=== PATIENT | female | born 1955 | race Caucasian/White ===

== ENCOUNTER 2017-03-30 21:57 | Emergency (ER) | payer OTHER ==
[~2017-03-30] VITALS: Ht 167.6 cm; Wt 60.0 kg
[~2017-03-30 21:57] MED LIST: DICY1TAB26 PO; ESTROGEN PATCH TOP; ZOFR4TAB3 SL
[2017-03-30 22:01] VITALS: BP 158/79; PULSE 93; RESP 16; TEMP 98.3; O2SAT 100
[2017-03-30] MEDS ORDERED: ACETAMINOPHEN 325 MG TAB PO ONE (22:15)
--- NOTE | 2017-03-30 22:29 | PD ---
HPI Chief Complaint: Fall Time Seen by Provider: 22:06 Travel History International Travel<30 days: No Contact w/Intl Traveler<30days: No Traveled to known affect area: No History of Present Illness HPI 61yo F with no PMH presents to the ED with c/o headache s/p fall today. Pt was dancing and the daniele she was dancing with let go of her and she fell and hit her head. Pt with small scalp laceration. Denies any LOC, chest pain, sob, n/v, abdominal pain, focal weakness or numbness. PFSH Past Medical History Diabetes: No Diminished Hearing: No Inguinal Hernia: Yes (RIGHT GROIN REPAIR) Immunizations Current: Yes ?: Not Menopausal: Yes : 3 Para: 3 Past Surgical History Abdominal Surgery: Yes (HERNIA REPAIR TO RIGHT GROIN) Cholecystectomy: Yes Genitourinary Surgery: Yes (BLADDER SUSPENSION) Hysterectomy: Yes (TOTAL AND OVARIES REMOVED) Tonsillectomy: Yes Other Surgery: Yes (BLADDER SUSPENSION) Social History Alcohol Use: Yes (WINE OCCASIONALLY) Tobacco Use: No Substance Use: No Allergies-Medications (Allergen,Severity, Reaction): Coded Allergies: No Known Allergies (Verified Adverse Reaction, Unknown, 03/30/17) Reported Meds & Prescriptions Reported Meds & Active Scripts Active Bentyl (Dicyclomine HCl) 20 Mg Tab 20 Mg PO Q8 Zofran ODT (Ondansetron HCl) 4 Mg Tab 4 Mg SL Q8 PRN FOR NAUSEA/VOMITING Reported [Estrogen Patch] 1 Patch TOP WEEKLY Review of Systems Except as stated in HPI: all other systems reviewed are Neg Physical Exam Narrative GENERAL: 61yo F in mild distress. SKIN: Focused skin assessment warm/dry. HEAD: +0.5cm scalp laceration in left parietal scalp. EYES: Pupils equal and round. No scleral icterus. No injection or drainage. ENT: No nasal bleeding or discharge. Mucous membranes pink and moist. NECK: Trachea midline. No JVD. CARDIOVASCULAR: Regular rate and rhythm. No murmur appreciated. RESPIRATORY: No accessory muscle use. Clear to auscultation. Breath sounds equal bilaterally. GASTROINTESTINAL: Abdomen soft, non-tender, nondistended. MUSCULOSKELETAL: No obvious deformities. No clubbing. No cyanosis. No edema. NEUROLOGICAL: Awake and alert. No obvious cranial nerve deficits. Motor grossly within normal limits. Normal speech. PSYCHIATRIC: Appropriate mood and affect; insight and judgment normal. Data Data Last Documented VS Vital Signs Date Time Temp Pulse Resp B/P (MAP) Pulse Ox O2 Delivery O2 Flow Rate FiO2 03/30/17 22:07 16 100 Room Air 03/30/17 22:01 98.3 93 158/79 (105) Orders Orders Ct Brain W/O Iv Contrast(Rout) (03/30/17 ) Acetaminophen (Tylenol) (03/30/17 22:15) Lidocaine 1% Inj (50 Ml) (Xylocaine 1% I (03/30/17 22:30) Ketorolac Inj (Toradol Inj) (03/31/17 00:45) MDM Medical Decision Making Medical Screen Exam Complete: Yes Emergency Medical Condition: Yes Differential Diagnosis Scalp laceration vs. ICH Narrative Course 61yo F with left scalp laceration s/p fall while dancing. Pt has been drinking a little but not intoxicated. EVAC said she had some repetitive questioning but here she is answering questions normally. CT brain negative. Laceration repaired. Headache improved with acetaminophen and toradol. Tetanus updated. Return precautions given. Procedures Procedure Narrative LACERATION LOCATION: Left scalp LENGTH: 0.5cm NUMBER OF STITCHES/DAVE: 1 REPAIR:The wound was copiously irrigated and explored without evidence of foreign body, tendon injury or neurovascular injury. The wound was closed using 1 staple. This was a single layer repair. Patient tolerated the procedure well. Diagnosis Primary Impression: Head injury Qualified Codes: S09.90XA - Unspecified injury of head, initial encounter Patient Instructions: General Instructions Departure Forms: Tests/Procedures Additional Instructions: Please follow up with your primary care physician in 5 days for staple removal. Return to the ED if symptoms worsen. Med/Other Pt SpecificInfo: Prescription(s) given Scripts Acetaminophen (Tylenol) 325 Mg Tab 650 MG PO Q6H Y for PAIN SCALE 1 TO 4, #20 TAB 0 Refills Prov: Nicolasa Hair DO 03/31/17 Disposition: 01 DISCHARGE HOME Condition: Stable Nicolasa Hair DO Mar 30, 2017 22:29
[2017-03-30] MEDS ORDERED: LIDOCAINE HCL 1% 50 ML VIAL INFIL ONE (22:30)
--- NOTE | 2017-03-30 22:50 | RADRPT ---
EXAM DATE/TIME: 03/30/2017 22:41 [place] COMPARISON: No previous studies available for comparison. INDICATIONS : Trauma, fall and hit back of head. RADIATION DOSE: 31.98 CTDIvol (mGy) MEDICAL HISTORY : Hernia. SURGICAL HISTORY : Cholecystectomy. Hysterectomy.Hernia repair. ENCOUNTER: Initial ACUITY: 1 day PAIN SCALE: 6/10 LOCATION: cranial TECHNIQUE: Multiple contiguous axial images were obtained of the head. Using automated exposure control and adj ustment of the mA and/or kV according to patient size, radiation dose was kept as low as reasonably a chievable to obtain optimal diagnostic quality images. DICOM format image data is available electro nically for review and comparison. FINDINGS: CEREBRUM: The ventricles are normal for age. No evidence of midline shift, mass lesion, hemorrhage or acute in farction. No extra-axial fluid collections are seen. POSTERIOR FOSSA: The cerebellum and brainstem are intact. The 4th ventricle is midline. The cerebellopontine angle i s unremarkable. EXTRACRANIAL: The visualized portion of the orbits is intact. SKULL: The calvaria is intact. No evidence of skull fracture. CONCLUSION: Normal examination. Patricio Gold MD on March 30, 2017 at 22:47 Board Certified Radiologist. This report was verified electronically.
[2017-03-31] MEDS ORDERED: KETOROLAC TROMETHAMINE 60 MG/2 ML (IM) VIAL IM ONE (00:45)
[2017-03-31] MEDS ORDERED: TYLE325T PO (00:46)
[2017-03-31 00:58] VITALS: BP 161/79; PULSE 80; RESP 16; O2SAT 97
[2017-03-31] MEDS ORDERED: KETOROLAC TROMETHAMINE 30 MG/ML (IVP) VIAL IV PUSH ONE (01:00)
[2017-03-31] MEDS ORDERED: TETANUS/DIPHTHERIA TOXOID ADULT 0.5 ML VIAL IM ONE (01:00)
== END 2017-03-31 01:05 | disposition home or self-care (01) ==
LOC: NEPE 21:57
DX: S09.90XA Unspecified injury of head, initial encounter (principal); S01.01XA Laceration without foreign body of scalp, initial encounter; W01.198A Fall on same level from slipping, tripping and stumbling with subsequent striking against other object, initial encounter; Y93.41 Activity, dancing; Z23 Encounter for immunization
CPT/HCPCS: 12001; 70450; 90471; 90714; 96374; 99285; J1885

== ENCOUNTER 2018-05-12 12:45 | Observation (INO) ==
[2018-05-12] MEDS ORDERED: Sod Chloride 0.9% Inj 1,000 ML IV.SIG SCH (13:45)
--- NOTE | 2018-05-12 13:50 | ED ---
HPI General Chief complaint: Dizziness Stated complaint: bp elevated/dizzy when walking/vomiting Time Seen by Provider: 05/12/18 13:33 Source: patient Mode of arrival: ambulatory Limitations: no limitations History of Present Illness HPI narrative: 62yo F with no significant PMH presents to the ED with multiple complaints. Since 8am today, she has not been feeling well, feeling clammy, nauseous, vomiting. Said she feels dizzy when she turn her head or get up from lying position. Denies any fever, chest pain, sob, abdominal pain, focal weakness or numbness. Related Data Home Medications Medication Instructions Recorded Confirmed No Known Home Medications 05/12/18 05/12/18 Previous Rx's Medication Instructions Recorded aspirin [Aspir-81] 81 mg PO DAILY #30 tab 05/13/18 meclizine 25 mg PO TID PRN #20 tab 05/13/18 Allergies Allergy/AdvReac Type Severity Reaction Status Date / Time No Known Allergies Allergy Verified 05/12/18 12:51 Review of Systems ROS: all other systems reviewed are negative [facility] Surgical History Surgical History History of bladder surgery (Acute) History of cholecystectomy (Acute) History of hysterectomy (Acute) History of tonsillectomy (Acute) Family History Family History Other No pertinent family history Social History Social History Substance History: No History of Abuse Second Hand Smoke Exposure: No Smoking Status: Former smoker Tobacco Type: Cigarettes How Often Do You Have a Drink Containing Alcohol: 2 to 4 times a month Recent Travel in [facility] within the Last 8 Weeks: No Recent Out of Country Travel within the Last 8 Weeks: No Immunization History Tetanus Immunization: <5 Years Tetanus Immunization Year if Known: 2017 Exam Narrative Exam Narrative: GENERAL: 62yo F in mild distress. SKIN: Focused skin assessment warm/dry. HEAD: Atraumatic. Normocephalic. EYES: Pupils equal and round at 4mm bilaterally. EOMI. ENT: No nasal bleeding or discharge. Mucous membranes pink and moist. NECK: Trachea midline. No JVD. CARDIOVASCULAR: Regular rate and rhythm. No murmur appreciated. RESPIRATORY: No accessory muscle use. Clear to auscultation. Breath sounds equal bilaterally. GASTROINTESTINAL: Abdomen soft, non-tender, nondistended. MUSCULOSKELETAL: No obvious deformities. No clubbing. No cyanosis. No edema. NEUROLOGICAL: Awake and alert. No obvious cranial nerve deficits. Motor grossly within normal limits in all extremities. Sensation intact. Normal speech. PSYCHIATRIC: Appropriate mood and affect; insight and judgment normal. Course Initial Documented Vital Signs Temperature 98 F 05/12/18 12:49 Pulse Rate 86 05/12/18 12:49 Respiratory Rate 14 05/12/18 12:49 Blood Pressure 150/64 H 05/12/18 12:49 Pulse Oximetry 98 05/12/18 12:49 Last Documented Vital Signs Temperature 99.1 F 05/13/18 11:49 Pulse Rate 90 05/13/18 11:49 Respiratory Rate 16 05/13/18 11:49 Blood Pressure 138/68 05/13/18 11:49 Pulse Oximetry 97 05/13/18 11:49 Medical Decision Making MDM Narrative Medical decision making narrative: 62yo F with multiple complaints. Impression is more vertigo. Labs reviewed, no leukocytosis. H/H normal. CMP unremarkable. Lipase normal. UA showed WBC 0-5. Pt given zofran and IVF. Said nausea had resolved but still dizzy. Pt given meclizine and reevaluated at bedside and said it did improve. Said she feels like she is drunk and have unsteady gait when she walks. Said she feels like there's something in the left side of her head but it is not really pain. MRI brain ordered to r/o posterior stroke. Pt reevaluated at bedside and said the left side of her face feels more numb compare to the right side while she was in the ED but she did not tell anyone. No facial droop or changes in her speech. NIH Stroke scale 1. Stat CT brain ordered. CT brain negative. She said she has never felt like this and that this was different from the last time she was here in November. Pt is unsteady while walking. Will admit for observation for TIA, neurology consult and MRIs. Discussed with Dr. Garrett and accepted to his service. Medical Screen Exam Complete: Yes Emergency Medical Condition: Yes Differential Diagnosis Differential Diagnosis: Peripheral vertigo vs. dehydration vs. viral syndrome vs. electrolyte abnormality vs. anxiety Lab Data Result diagrams: 05/13/18 06:07 05/13/18 06:07 Lab Results 05/12/18 05/12/18 05/12/18 Range/Units 14:06 14:06 15:19 CBC w Diff Auto diff final WBC 6.7 (4.0-11.0) th/mm3 RBC 4.35 (4.00-5.30) mil/mm3 Hgb 12.7 (11.6-15.3) gm/dL Hct 39.0 (35.0-46.0) % MCV 89.7 (80.0-100.0) fL MCH 29.3 (27.0-34.0) pg MCHC 32.7 (32.0-36.0) % RDW 12.2 (11.6-17.2) % Plt Count 256 (150-450) th/mm3 MPV 9.3 (7.0-11.0) fL Neut % (Auto) 83.0 H (16.0-70.0) % Lymph % (Auto) 12.8 (9.0-44.0) % [place] % (Auto) 3.6 (0.0-8.0) % Eos % (Auto) 0.3 (0.0-4.0) % Baso % (Auto) 0.3 (0.0-2.0) % Neut # (Auto) 5.6 (1.8-7.7) th/mm3 Lymph # (Auto) 0.9 L (1.0-4.8) th/mm3 [place] # (Auto) 0.2 (0.0-0.9) th/mm3 Eos # (Auto) 0.0 (0.0-0.4) th/mm3 Baso # (Auto) 0.0 (0.0-0.2) th/mm3 WBC Differential . Differential Comment . Sodium 138 (136-145) meq/L Potassium 4.2 (3.5-5.1) meq/L Chloride 105 (98-107) meq/L Carbon Dioxide 24.8 (21.0-32.0) meq/L Anion Gap 8 (5-15) meq/L BUN 13 (7-18) mg/dL Creatinine 0.56 (0.50-1.00) mg/dL Estimated GFR Greater than 89 (>89) mL/min Random Glucose 135 H (74-106) mg/dL Calcium 8.0 L (8.5-10.1) mg/dL Total Bilirubin 0.7 (0.2-1.0) mg/dL AST 19 (15-37) U/L ALT 24 (10-53) U/L Alkaline Phosphatase 69 (45-117) U/L Troponin I Less than 0.02 L (0.02-0.05) ng/mL Total Protein 7.3 (6.4-8.2) g/dL Albumin 3.5 (3.4-5.0) g/dL Lipase 146 (73-393) U/L Urine Color Yellow (Yellw/Straw) Urine Clarity Clear (Clear) Urine pH 7.5 (5.0-8.5) Ur Specific [place] 1.010 (1.002-1.035) Urine Protein Negative (Neg-Trace) mg/dL Urine Glucose (UA) Negative (Negative) mg/dL Urine Ketones Negative (Negative) mg/dL Urine Occult Blood Negative (Negative) Urine Nitrate Negative (Negative) Urine Bilirubin Negative (Negative) Urine Urobilinogen 0.2 (Less than 2) mg/dL Ur Leukocyte Esterase Negative (Negative) Urine WBC 0-5 (0-5) /hpf Ur Squamous Epith Cells 0-5 (0-5) /hpf Urine Bacteria Rare H (None) /hpf Urine Mucus Rare H (Occasional) /lpf Micro UA Comment Culture not ind Ur Microscopic Review Microscopic reviewed Urine Culture Comments Culture not ind 05/13/18 05/13/18 05/13/18 Range/Units 00:52 06:07 06:07 CBC w Diff Auto diff final WBC 5.4 (4.0-11.0) th/mm3 RBC 4.10 (4.00-5.30) mil/mm3 Hgb 11.8 (11.6-15.3) gm/dL Hct 36.3 (35.0-46.0) % MCV 88.4 (80.0-100.0) fL MCH 28.7 (27.0-34.0) pg MCHC 32.5 (32.0-36.0) % RDW 12.1 (11.6-17.2) % Plt Count 230 (150-450) th/mm3 MPV 9.2 (7.0-11.0) fL Neut % (Auto) 46.5 (16.0-70.0) % Lymph % (Auto) 40.4 (9.0-44.0) % [place] % (Auto) 10.2 H (0.0-8.0) % Eos % (Auto) 2.6 (0.0-4.0) % Baso % (Auto) 0.3 (0.0-2.0) % Neut # (Auto) 2.5 (1.8-7.7) th/mm3 Lymph # (Auto) 2.2 (1.0-4.8) th/mm3 [place] # (Auto) 0.6 (0.0-0.9) th/mm3 Eos # (Auto) 0.1 (0.0-0.4) th/mm3 Baso # (Auto) 0.0 (0.0-0.2) th/mm3 WBC Differential . Differential Comment . Sodium 144 (136-145) meq/L Potassium 4.1 (3.5-5.1) meq/L Chloride 111 H (98-107) meq/L Carbon Dioxide 25.9 (21.0-32.0) meq/L Anion Gap 7 (5-15) meq/L BUN 10 (7-18) mg/dL Creatinine 0.56 (0.50-1.00) mg/dL Estimated GFR Greater than 89 (>89) mL/min Random Glucose 101 (74-106) mg/dL Calcium 7.8 L (8.5-10.1) mg/dL Total Bilirubin 1.2 H (0.2-1.0) mg/dL AST 14 L (15-37) U/L ALT 22 (10-53) U/L Alkaline Phosphatase 61 (45-117) U/L Troponin I Less than 0.02 L (0.02-0.05) ng/mL Total Protein 6.4 D (6.4-8.2) g/dL Albumin 3.1 L (3.4-5.0) g/dL Lipase (73-393) U/L Urine Color (Yellw/Straw) Urine Clarity (Clear) Urine pH (5.0-8.5) Ur Specific [place] (1.002-1.035) Urine Protein (Neg-Trace) mg/dL Urine Glucose (UA) (Negative) mg/dL Urine Ketones (Negative) mg/dL Urine Occult Blood (Negative) Urine Nitrate (Negative) Urine Bilirubin (Negative) Urine Urobilinogen (Less than 2) mg/dL Ur Leukocyte Esterase (Negative) Urine WBC (0-5) /hpf Ur Squamous Epith Cells (0-5) /hpf Urine Bacteria (None) /hpf Urine Mucus (Occasional) /lpf Micro UA Comment Ur Microscopic Review Urine Culture Comments Imaging Data Radiologist's impression: Head CT 05/12/18 17:56 CONCLUSION: 1. Negative noncontrast head CT. . Head MRI 05/13/18 17:48 CONCLUSION: 1. Negative MR Brain with and without contrast. Head MRA 05/13/18 18:00 CONCLUSION: 1. Negative MRA Cow ([place]) non contrast. Neck MRA 05/13/18 18:00 CONCLUSION: 1. Negative MRA Carotids. Percent stenosis is calculated using the diameter of the stenotic region over the diameter of the normal distal internal carotid artery ECG Data EKG Prior to Arrival: No Attestation: I personally reviewed and interpreted this ECG as follows: Interpretation: NSR 70bpm. Normal axis. WA interval 166ms. Q wave V2. Similar to prior on 11/2017. QTc 422ms. No significant ST elevation or depression. Discharge Plan Discharge Disposition Patient Disposition: ED Admit(ED Internal Use Only) Discharge Condition Condition: Stable Discharge Order Discharge Orders: Discharge Order (Routine); Ordered 05/13/18 Ordered By: Oscar Doshi ED Use Only Admit Order (Routine); Ordered 05/12/18 Ordered By: Nicolasa Hair Discharge Details Anticipated Discharge Date: 05/13/18 Diagnosis: Dizziness Physicians Team ED Provider: Nicolasa Hair Primary Care Provider: Primary Care Theresa Wilkins Attending Provider: Shena Heredia Status ED Status: Left Department Discharge Information Discharge Date/Time: 05/12/18 21:14
[2018-05-12 14:13] LABS: Baso % (Auto) 0.3 % (0.0-2.0); Eos % (Auto) 0.3 % (0.0-4.0); Hemoglobin 12.7 gm/dL (11.6-15.3); Lymph # (Auto) 0.9 th/mm3 (1.0-4.8); Lymph % (Auto) 12.8 % (9.0-44.0); Mean Corpuscular HGB Conc 32.7 % (32.0-36.0); Mean Corpuscular Hemoglobin 29.3 pg (27.0-34.0); Mean Corpuscular Volume 89.7 fL (80.0-100.0); Mean Platelet Volume 9.3 fL (7.0-11.0); Mono # (Auto) 0.2 th/mm3 (0.0-0.9); Mono % (Auto) 3.6 % (0.0-8.0); Neut # (Auto) 5.6 th/mm3 (1.8-7.7); Platelet Count 256 th/mm3 (150-450); Red Blood Count 4.35 mil/mm3 (4.00-5.30); Red Cell Distribution Width 12.2 % (11.6-17.2); White Blood Count 6.7 th/mm3 (4.0-11.0)
[2018-05-12 14:20] LABS: Chloride 105 meq/L (98-107); Potassium 4.2 meq/L (3.5-5.1); Sodium 138 meq/L (136-145)
[2018-05-12 14:26] LABS: Albumin 3.5 g/dL (3.4-5.0); Anion Gap 8 meq/L (5-15); Carbon Dioxide 24.8 meq/L (21.0-32.0); Glucose,Random 135 mg/dL (74-106)
[2018-05-12 14:27] LABS: Blood Urea Nitrogen 13 mg/dL (7-18); Lipase 146 U/L (73-393)
[2018-05-12 14:29] LABS: Alanine Aminotransferase 24 U/L (10-53); Aspartate Aminotransferase 19 U/L (15-37); Glomerular Filtration Rate Greater Than 89 mL/min (>89)
[2018-05-12 14:30] LABS: Total Protein 7.3 g/dL (6.4-8.2)
[2018-05-12 14:32] LABS: Alkaline Phosphatase 69 U/L (45-117)
[2018-05-12 15:40] LABS: Bilirubin,Urine Negative (Negative); Clarity,Urine Clear (Clear); Color,Urine Yellow (Yellw/Straw); Glucose,Urine (UA) Negative (Negative); Leukocyte Esterase,Urine Negative (Negative); Nitrite,Urine Negative (Negative); PH,Urine 7.5 (5.0-8.5); Urobilinogen,Urine 0.2 mg/dL (Less than 2)
[2018-05-12 15:44] LABS: Bacteria,Urine Rare /hpf; Mucus,Urine Rare /lpf (Occasional); Squamous Epithelial Cell,Urine 0-5 /hpf (0-5); WBC,Urine 0-5 /hpf (0-5)
--- NOTE | 2018-05-12 18:13 | CT ---
EXAM DATE: 05/12/2018 6:08 PM EST AGE/SEX: 62 years / Female INDICATIONS: Dizziness with left facial numbness. CLINICAL DATA: This is the patient's initial encounter. Patient reports that signs and symptoms have been present for 1 day and indicates a pain score of 0/10. MEDICAL/SURGICAL HISTORY: . Mitral valve prolapse. Hysterectomy. Cholecystectomy. Tonsillectomy. Bladder surgery. RADIATION DOSE: 48.58 CTDI (mGy) COMPARISON: [facility] [place], CT BRAIN W/O CONTRAST, 03/30/2017. . TECHNIQUE: CT of the head without contrast. Using automated exposure control and adjustment of the mA and/or kV according to patient size, radiation dose was kept as low as reasonably achievable to ob tain optimal diagnostic quality images. DICOM format image data is available electronically for revi ew and comparison. FINDINGS: Cerebrum: The ventricles are normal for age. No evidence of midline shift, mass lesion, hemorrhage or acute infarction. No extraaxial fluid collections are seen. Posterior Fossa: The cerebellum and brainstem are intact. The 4th ventricle is midline. The cerebe llopontine angle is unremarkable. Extracranial: The visualized portion of the orbits is intact. Skull: The calvaria is intact. No evidence of skull fracture. CONCLUSION: 1. Negative noncontrast head CT. . Electronically signed by: Gildardo Larson MD Board Certified Radiologist 05/12/2018 6:12 PM EST
[2018-05-12] MEDS: Sod Chloride 0.9% Inj 1,000 ML IV.CONT SCH (19:28)
[2018-05-12] MEDS: Acetaminophen 325 MG Tablet PO PRN (23:29)
[2018-05-13 00:17] VITALS: RESP 16
[2018-05-13 06:44] LABS: Baso % (Auto) 0.3 % (0.0-2.0); Eos # (Auto) 0.1 th/mm3 (0.0-0.4); Eos % (Auto) 2.6 % (0.0-4.0); Hematocrit 36.3 % (35.0-46.0); Hemoglobin 11.8 gm/dL (11.6-15.3); Lymph # (Auto) 2.2 th/mm3 (1.0-4.8); Lymph % (Auto) 40.4 % (9.0-44.0); Mean Corpuscular HGB Conc 32.5 % (32.0-36.0); Mean Corpuscular Hemoglobin 28.7 pg (27.0-34.0); Mean Corpuscular Volume 88.4 fL (80.0-100.0); Mean Platelet Volume 9.2 fL (7.0-11.0); Mono # (Auto) 0.6 th/mm3 (0.0-0.9); Mono % (Auto) 10.2 % (0.0-8.0); Neut # (Auto) 2.5 th/mm3 (1.8-7.7); Neut % (Auto) 46.5 % (16.0-70.0); Platelet Count 230 th/mm3 (150-450); Red Cell Distribution Width 12.1 % (11.6-17.2); White Blood Count 5.4 th/mm3 (4.0-11.0)
[2018-05-13 06:53] LABS: Chloride 111 meq/L (98-107); Potassium 4.1 meq/L (3.5-5.1); Sodium 144 meq/L (136-145)
[2018-05-13 06:57] LABS: Calcium 7.8 mg/dL (8.5-10.1)
[2018-05-13 06:58] LABS: Albumin 3.1 g/dL (3.4-5.0); Anion Gap 7 meq/L (5-15); Blood Urea Nitrogen 10 mg/dL (7-18); Carbon Dioxide 25.9 meq/L (21.0-32.0); Glucose,Random 101 mg/dL (74-106)
[2018-05-13 07:01] LABS: Aspartate Aminotransferase 14 U/L (15-37); Glomerular Filtration Rate Greater Than 89 mL/min (>89)
[2018-05-13 07:03] LABS: Total Protein 6.4 g/dL (6.4-8.2)
[2018-05-13 07:04] LABS: Alkaline Phosphatase 61 U/L (45-117)
[2018-05-13 07:13] LABS: Alanine Aminotransferase 22 U/L (10-53)
[2018-05-13] MEDS: Acetaminophen 325 MG Tablet PO PRN (09:18)
[2018-05-13] MEDS: Sod Chloride 0.9% Inj 1,000 ML IV.CONT SCH (10:43)
[2018-05-13] MEDS ORDERED: Gadobutrol PF 10 MMOL/10 ML Vial (for RAD) IV.SIG ONE (11:00)
--- NOTE | 2018-05-13 11:02 | MR ---
EXAM DATE: 05/13/2018 10:41 AM EST AGE/SEX: 62 years / Female INDICATIONS: Dizziness. Cephalgia and left facial numbness. CLINICAL DATA: This is the patient's subsequent encounter. Patient reports that signs and symptoms h ave been present for 2 days and indicates a pain score of 0/10. MEDICAL/SURGICAL HISTORY: None. Cholecystectomy. Tonsillectomy. Bladder surgery. COMPARISON: [facility], MRA HEAD W/O CONTRAST, 05/13/2018. [facility], CT HEAD W/O CONTRAST, 05/12/2018. . TECHNIQUE: Multiplanar, multisequence examination of the brain was performed without and with 10 ml G adavist (gadobutrol) contrast as a single exam dose. FINDINGS: Cerebrum: The ventricles are normal for age. No evidence of midline shift, mass lesion, hemorrhage or acute infarction. No extraaxial fluid collections are seen. The pituitary gland and suprasellar cistern are normal in configuration. White Matter: No significant signal abnormalities are seen in the white matter. Posterior Fossa: The cerebellum and brainstem are intact. The 4th ventricle is midline. The cerebel lopontine angle is unremarkable. The cerebellar tonsils are normal in position. Diffusion Imaging: No focal areas of restricted diffusion are seen. No evidence of acute infarction . Extracranial: The visualized portions of the orbits and paranasal sinuses are unremarkable. Post Contrast: No abnormal areas of parenchymal or dural enhancement. No evidence of blood-brain ba rrier breakdown. CONCLUSION: 1. Negative MR Brain with and without contrast. Electronically signed by: Brock Malone MD Board Certified Radiologist 05/13/2018 11:01 AM EST
--- NOTE | 2018-05-13 11:03 | MR ---
EXAM DATE: 05/13/2018 10:40 AM EST AGE/SEX: 62 years / Female INDICATIONS: Cephalgia. Numbness on left side of face and dizziness. CLINICAL DATA: This is the patient's subsequent encounter. Patient reports that signs and symptoms h ave been present for 2 days and indicates a pain score of 0/10. MEDICAL/SURGICAL HISTORY: None. Cholecystectomy. Tonsillectomy. Bladder surgery. COMPARISON: [facility], MR HEAD W & W/O CONTRAST, 05/13/2018. [facility], CT HEAD W/O CONTRAST, 05/12/2018. . TECHNIQUE: 3D [id number] MRA was performed. Source images, multiplanar STS MIP, and 3D volum e MIP reconstructions were reviewed. FINDINGS: There is excellent visualization of the major intracranial arteries out to the second-order branch ve ssels. There is no evidence for aneurysm, vessel truncation or stenosis, and no evidence for vascula r malformation. There is a patent right posterior communicating artery. CONCLUSION: 1. Negative MRA [place] ([place]) non contrast. Electronically signed by: Brock Malone MD Board Certified Radiologist 05/13/2018 11:01 AM EST
--- NOTE | 2018-05-13 11:18 | MR ---
EXAM DATE: 05/13/2018 11:15 AM EST AGE/SEX: 62 years / Female INDICATIONS: Stenosis. CLINICAL DATA: This is the patient's subsequent encounter. Patient reports that signs and symptoms h ave been present for 2 days and indicates a pain score of 0/10. MEDICAL/SURGICAL HISTORY: None. Cholecystectomy. Tonsillectomy. Bladder surgery. COMPARISON: No prior exams available for comparison. TECHNIQUE: 10 ml Gadavist (gadobutrol) contrast infused MRA (single exam dose) of the extracranial circulation was performed using a neurovascular coil. Postprocessing was performed, including rotati ng sub-volume maximum intensity projections of each carotid artery, rotating full-volume maximum inte nsity projections of both carotid arteries, sagittal and coronal sliding thin-slab reformations of ea ch carotid artery, and left oblique sliding thin-slab reformation through the aortic arch to include the origin of the arch branch vessels. FINDINGS: Aortic Arch : There is a three-vessel origin of the great vessels from the aorta. No evidence of o stial narrowing. Right Carotid : The common carotid artery is intact. The carotid bulb has a normal configuration wi thout ulceration or narrowing. The internal carotid artery lumen is smooth without stenosis. The ex ternal carotid artery is intact. Left Carotid : The common carotid artery is intact. The carotid bulb has a normal configuration wit hout ulceration or narrowing. The internal carotid artery lumen is smooth without stenosis. The ext ernal carotid artery is intact. Vertebrals : The vertebral arteries have a symmetric diameter. No stenotic lesions are seen. CONCLUSION: 1. Negative MRA Carotids. Percent stenosis is calculated using the diameter of the stenotic region over the diameter of the nor mal distal internal carotid artery Electronically signed by: Brock Malone MD Board Certified Radiologist 05/13/2018 11:17 AM EST
[2018-05-13 11:50] VITALS: BP 138/68; PULSE 90; TEMP 99.1; O2SAT 97
--- NOTE | 2018-05-13 13:00 | P.HP ---
History of Present Illness Primary Care Physician: No Primary Care Physician Chief Complaint: Headache, dizziness, disequilibrium History of Present Illness: 62-year-old female with no chronic medical illnesses who presented to hospital for dizziness, difficulty ambulating, headache, nausea. Patient states that over the last few months she has been experiencing a headache which is located in the left posterior aspect of her head with associated nausea, vomiting. She indicates it feels that there is numbness in her skull whenever he has these episodes. Patient had a significant headache on Saturday with episodes of nausea and vomiting. She did go to work on Saturday and states that she was having problems walking with dizziness. She described it as if she was on a boat rocking. She had an episode of dry heaves at work and when she got home she still had significant difficulty with ambulating, and another episode of nausea and vomiting, persistent headache. She indicated that got to the point where she was so dizzy she could not ambulate so she came to emergency department for evaluation. Patient did have workup done which was unremarkable. It is recommended by the ER physician that the patient be observed in the hospital for further evaluation and management. Upon evaluating the patient she does not have any dizziness, headache at this time. She has not had any outpatient workup by her primary medical doctor or neurologist for her headaches. She denies any unilateral weakness, paresthesia , paralysis, dysphagia, slurred speech. - Diagnosis (1) Disequilibrium (2) Cephalgia (3) Dizziness Review of Systems All other systems reviewed negative except as stated in HPI Neurologic: Reports dizziness, Reports headache(s) [facility] - History History Provided By: Patient - Medical History Medical History: Medical History (Last Reviewed 05/13/18 @ 12:50 by DANAY Pugh) History of palpitations Menopause Mitral valve prolapse - Surgical History Surgical History: Surgical History (Last Updated 05/13/18 @ 12:50 by DANAY Pugh) History of bladder surgery History of cholecystectomy History of hysterectomy History of tonsillectomy - Family History Family History: Family History (Last Updated 05/13/18 @ 12:50 by DANAY Pugh) Other No pertinent family history - Tobacco History Second Hand Smoke Exposure: No Tobacco Use In Past 30 Days: No Smoking Status: Former smoker Tobacco Type: Cigarettes - Alcohol History How Often Do You Have a Drink Containing Alcohol: 2 to 4 times a month - Substance Use History Substance History: No History of Abuse - Travel History Recent Travel in the [place] Within the Last 8 Weeks: No Recent Travel Out of the Country Within the Last 8 Weeks: No - Immunization History Tetanus Immunization: <5 Years Tetanus Immunization Year if Known: 2017 Medications and Allergies Active Medications: Active Medications Acetaminophen (Tylenol) 650 mg PO Q4H PRN PRN Reason: Temp > 100.4, pain 1-2 Last Admin: 05/13/18 09:18 Dose: 650 mg Sodium Chloride (Ns Inj) 1,000 mls @ 75 mls/hr IV.CONT .[id number] [facility] Stop: 05/13/18 21:09 Last Admin: 05/13/18 10:43 Dose: 75 mls/hr Lactulose (Lactulose Liq) 30 ml PO DAILY PRN PRN Reason: SEVERE CONSITIPATION Ondansetron HCl (Zofran Inj) 4 mg IV.PUSH Q6H PRN PRN Reason: NAUSEA OR VOMITING Sodium Chloride (Ns Flush) 2 ml IV.FLUSH BID [facility] Last Admin: 05/13/18 09:30 Dose: Not Given Sodium Chloride (Ns Flush) 2 ml IV.FLUSH PRN PRN PRN Reason: FLUSH AFTER USING IV ACCESS Allergies Allergy/AdvReac Type Severity Reaction Status Date / Time No Known Allergies Allergy Verified 05/12/18 12:51 Home Medications Medication Instructions Recorded Confirmed Type No Known Home Medications 05/12/18 05/12/18 History Exam Vital signs: Vital Signs 05/12/18 12:49 05/12/18 18:28 05/12/18 19:20 Temperature 98 F Pulse Rate 86 84 77 Respiratory Rate 14 16 16 Blood Pressure 150/64 H 137/78 138/75 Pulse Oximetry 98 98 99 05/12/18 20:00 05/12/18 21:13 05/13/18 00:00 Temperature 98.6 F 96.3 F L Pulse Rate 80 72 75 Respiratory Rate 16 16 16 Blood Pressure 125/66 139/70 101/57 L Pulse Oximetry 99 99 97 05/13/18 04:00 05/13/18 08:00 05/13/18 11:49 Temperature 97.6 F 97.3 F L 99.1 F Pulse Rate 74 83 90 Respiratory Rate 16 16 16 Blood Pressure 121/62 111/62 138/68 Pulse Oximetry 98 98 97 Intake & Output 05/12/18 05/13/18 05/13/18 18:59 06:59 18:59 Intake Total 1000 / 1000 200 / 200 1000 / 1000 Balance 1000 / 1000 200 / 200 1000 / 1000 Weight 55.3 kg 58.5 kg Intake: IV 1000 / 1000 1000 / 1000 NS Inj 1,000 ML @ 75 mls/hr IV. 1000 / 1000 CONT .[id number] [facility] Rx#: [id number] NS Inj 1,000 ML @ 1000 mls/hr 1000 / 1000 IV.SIG BOLUS ELLIS Rx#:[id number] Oral 200 / 200 Other: # Voids 2 Narrative: GENERAL: Well-developed, well-nourished, in no acute distress. alert and orientated HEENT: Head is normocephalic without any lesions or masses noted. Facial features are symmetric. Eyes: Pupils equal round reactive to light. Extraocular muscles are intact. Conjunctivae were clear. Oropharyngeal: Pharynx without any erythema edema. Tongue is midline without deviation. Buccal mucosa is moist without any masses or lesions NECK: Supple without any masses. Trachea midline no deviation. No JVD, no bruits are appreciated. Patient does have palpable tenderness noted over the paraspinal musculatures of the cervical spine. There is obvious muscle spasm noted at C2-C3. Upon palpation of the spasm and rotation of the cervical spine it made her pain worse. CARDIAC: Regular rhythm, regular rate. S1/S2 are heard. No murmurs gallops or rubs. LUNGS: Clear to auscultation bilaterally. No wheeze, rhonchi or rales. No use of accessory muscles on inspiration or expiration. ABDOMEN: Soft, nontender. Nondistended. Bowel sounds heard in all 4 quadrants. No organomegaly or masses. Negative rebound, negative guarding EXTREMITIES: No edema, pulses are equal bilaterally. No cyanosis or clubbing NEUROLOGY: Mood and affect appear appropriate. Cranial nerves II through XII grossly intact. Muscle strength 5/5 in upper and lower extremities bilaterally. Deep tendon reflexes are 2+ in upper and lower extremities bilaterally. Results - Labs CBC & Chem 7: 05/13/18 06:07 05/13/18 06:07 Labs: Laboratory Results - last 24 hr 05/12/18 05/12/18 05/12/18 14:06 14:06 15:19 CBC w Diff Auto diff final WBC 6.7 RBC 4.35 Hgb 12.7 Hct 39.0 MCV 89.7 MCH 29.3 MCHC 32.7 RDW 12.2 Plt Count 256 MPV 9.3 Neut % (Auto) 83.0 H Lymph % (Auto) 12.8 Lamar % (Auto) 3.6 Eos % (Auto) 0.3 Baso % (Auto) 0.3 Neut # (Auto) 5.6 Lymph # (Auto) 0.9 L [place]ar # (Auto) 0.2 Eos # (Auto) 0.0 Baso # (Auto) 0.0 WBC Differential . Differential Comment . Sodium 138 Potassium 4.2 Chloride 105 Carbon Dioxide 24.8 Anion Gap 8 BUN 13 Creatinine 0.56 Estimated GFR Greater than 89 Random Glucose 135 H Calcium 8.0 L Total Bilirubin 0.7 AST 19 ALT 24 Alkaline Phosphatase 69 Troponin I Less than 0.02 L Total Protein 7.3 Albumin 3.5 Lipase 146 Urine Color Yellow Urine Clarity Clear Urine pH 7.5 Ur Specific Vida 1.010 Urine Protein Negative Urine Glucose (UA) Negative Urine Ketones Negative Urine Occult Blood Negative Urine Nitrate Negative Urine Bilirubin Negative Urine Urobilinogen 0.2 Ur Leukocyte Esterase Negative Urine WBC 0-5 Ur Squamous Epith Cells 0-5 Urine Bacteria Rare H Urine Mucus Rare H Micro UA Comment Culture not ind Ur Microscopic Review Microscopic reviewed Urine Culture Comments Culture not ind 05/13/18 05/13/18 05/13/18 00:52 06:07 06:07 CBC w Diff Auto diff final WBC 5.4 RBC 4.10 Hgb 11.8 Hct 36.3 MCV 88.4 MCH 28.7 MCHC 32.5 RDW 12.1 Plt Count 230 MPV 9.2 Neut % (Auto) 46.5 Lymph % (Auto) 40.4 Lamar % (Auto) 10.2 H Eos % (Auto) 2.6 Baso % (Auto) 0.3 Neut # (Auto) 2.5 Lymph # (Auto) 2.2 Lamar # (Auto) 0.6 Eos # (Auto) 0.1 Baso # (Auto) 0.0 WBC Differential . Differential Comment . Sodium 144 Potassium 4.1 Chloride 111 H Carbon Dioxide 25.9 Anion Gap 7 BUN 10 Creatinine 0.56 Estimated GFR Greater than 89 Random Glucose 101 Calcium 7.8 L Total Bilirubin 1.2 H AST 14 L ALT 22 Alkaline Phosphatase 61 Troponin I Less than 0.02 L Total Protein 6.4 D Albumin 3.1 L Lipase Urine Color Urine Clarity Urine pH Ur Specific Vida Urine Protein Urine Glucose (UA) Urine Ketones Urine Occult Blood Urine Nitrate Urine Bilirubin Urine Urobilinogen Ur Leukocyte Esterase Urine WBC Ur Squamous Epith Cells Urine Bacteria Urine Mucus Micro UA Comment Ur Microscopic Review Urine Culture Comments - Imaging Impressions Head CT 05/12/18 17:56 CONCLUSION: 1. Negative noncontrast head CT. . Head MRI 05/13/18 17:48 CONCLUSION: 1. Negative MR Brain with and without contrast. Head MRA 05/13/18 18:00 CONCLUSION: 1. Negative MRA Cow ([place]) non contrast. Neck MRA 05/13/18 18:00 CONCLUSION: 1. Negative MRA Carotids. Percent stenosis is calculated using the diameter of the stenotic region over the diameter of the normal distal internal carotid artery Caprini VTE Risk Assessment Caprini VTE Risk Assessment: Moderate/High Risk (score >= 2) Caprini Risk Assessment Model: Point Value = 1 Point Value = 2 Point Value = 3 Point Value = 5 Age 41-60 Minor surgery BMI > 25 kg/m2 Swollen legs Varicose veins or History of unexplained or recurrent spontaneous Oral contraceptives or hormone replacement Sepsis (< 1 month) Serious lung disease, including pneumonia (< 1 month) Abnormal pulmonary function Acute myocardial infarction Congestive heart failure (< 1 month) History of inflammatory bowel disease Medical patient at bed rest Age 61-74 Arthroscopic surgery Major open surgery (> 45 min) Laparoscopic surgery (> 45 min) Malignancy Confined to bed (> 72 hours) Immobilizing plaster cast Central venous access Age >= 75 History of VTE Family history of VTE Factor V Leiden Prothrombin [id number] Lupus anticoagulant Anticardiolipin antibodies Elevated serum homocysteine Heparin-induced thrombocytopenia Other congenital or acquired thrombophilia Stroke (< 1 month) Elective arthroplasty Hip, pelvis, or leg fracture Acute spinal cord injury (< 1 month) Prophylaxis Regimen: Total Risk Factor Score Risk Level Prophylaxis Regimen 0-1 Low Early ambulation 2 Moderate Order ONE of the following: *Sequential Compression Device (SCD) *Heparin 5000 units SQ BID 3-4 Higher Order ONE of the following medications: *Heparin 5000 units SQ TID *Enoxaparin/Lovenox 40 mg SQ daily (WT < 150 kg, CrCl > 30 mL/min) *Enoxaparin/Lovenox 30 mg SQ daily (WT < 150 kg, CrCl > 10-29 mL/min) *Enoxaparin/Lovenox 30 mg SQ BID (WT < 150 kg, CrCl > 30 mL/min) AND/OR *Sequential Compression Device (SCD) 5 or more Highest Order ONE of the following medications: *Heparin 5000 units SQ TID (Preferred with Epidurals) *Enoxaparin/Lovenox 40 mg SQ daily (WT < 150 kg, CrCl > 30 mL/min) *Enoxaparin/Lovenox 30 mg SQ daily (WT < 150 kg, CrCl > 10-29 mL/min) *Enoxaparin/Lovenox 30 mg SQ BID (WT < 150 kg, CrCl > 30 mL/min) AND *Sequential Compression Device (SCD) Assessment and Plan - Assessment (1) Disequilibrium Code(s): R42 - Dizziness and giddiness Status: Acute (2) Cephalgia Code(s): R51 - Headache Status: Acute (3) Dizziness Code(s): R42 - Dizziness and giddiness Status: Acute - Plan Disequilibrium -Recommend the patient be observed in the hospital to rule out TIA/CVA -CT of the brain was unremarkable for any acute abnormality -MRI of the brain did not indicate any acute abnormalities -MRA of the neck and brain did not indicate any acute abnormalities -Telemetry was reviewed and no abnormal arrhythmia -Physical therapy evaluated patient, care discussed with them who indicated the patient was doing fine, ambulating well. No deficits appreciated. -Patient has been ruled out for acute CVA. Other etiologies could include TIA versus migraine variant -Continue meclizine -Recommend the patient follow-up with primary medical doctor and possible outpatient neurology for further evaluation of her cephalgia, -would start the patient on baby aspirin upon discharge DVT prevention -Sequential compression devices Discharge Planning: Discharge home in stable condition Activity: Ad toney. Diet: Regular diet Medication per medication reconciliation Follow-up with primary medical doctor in 1 week
--- NOTE | 2018-05-13 16:55 | ECG ---
Date Performed: 05/12/2018 Time Performed: 13:53:17 PTAGE: 62 years EKG: Sinus rhythm Consider ANTEROSEPTAL MYOCARDIAL INFARCTION-age Indeterminate. ABNORMAL ECG PREVIOUS TRACING : 11/27/2017 20.26 DOCTOR: Kehinde Zhao Interpretating Date/Time 05/13/2018 16:53:40
== END 2018-05-13 15:12 | disposition home or self-care (01) ==
LOC: PHEDA 12:45 → PHED 12:45 → PH3 21:08
PROVIDERS: ADMIT Hospitalist; ATTEND Hospitalist